=== PATIENT | male | born 1950 | race Caucasian/White ===

== ENCOUNTER 2017-06-08 05:25 | Day surgery (SDC) | payer MEDICARE, OTHER ==
[2017-06-08] VITALS (13 sets, daily range): BP systolic 95–147; BP diastolic 55–85
[~2017-06-08] VITALS: Ht 179.1 cm; Wt 121.1 kg
[~2017-06-08 05:25] MED LIST: ATORVASTATIN CA20 MG ORAL; FENOFIBRATE67 MG ORAL; GLIPIZIDE5 MG ORAL; JANUVIA25 MG ORAL; JARDIANCE PO; LISINOPRIL10 MG ORAL; METFORMIN HCL1000 M1 ORAL; MULTIVITAMINS1 EAC2 ORAL; PRESERVISION L1 EACH PO; TRAMADOL HCL50 MG ORAL; VIT C PO; VITAMIN D1000 UNI1 ORAL
[2017-06-08] MEDS ORDERED: ceFAZolin 1gm in D5W 55ml IVP ONE (06:00)
[2017-06-08] MEDS ORDERED: oxyCONTIN 20mg tab ORAL ONE (06:00)
[2017-06-08] MEDS ORDERED: celeBREX 200mg Cap **SURGERY PATIENTS ONLY ORAL ONE ×2 (06:00→06:24)
[2017-06-08] MEDS ORDERED: Ropivacaine 5mg/ml Vial 30ml INJ ONE (06:34)
--- NOTE | 2017-06-08 06:55 | Pre-Procedure Note/Attestation ---
Pre-Procedure Note/Attestation Complete Prior to Procedure Planned Procedure: right Procedure Narrative: rt shoulder scope, sad, mini adriana, rtc repair Indications for Procedure Pre-Operative Diagnosis: rt shoulder rtc tear Attestation I attest that I discussed the nature of the procedure; its benefits; risks and complications; and alternatives (and the risks and benefits of such alternatives ), prior to the procedure, with the patient (or the patient's legal mechanical service representative). I attest that, if there was a reasonable possibility of needing a blood transfusion, the patient (or the patient's legal mechanical service representative) was given the [facility] standardized written summary, pursuant to the Hayden Lester Blood Safety Act ([place] Health and Safety Code # 1645, as amended). I attest that I re-evaluated the patient just prior to the surgery and that there has been no change in the patient's H&P, except as documented below: NONE GRISEL GR Jun 08, 2017 06:55
[2017-06-08] MEDS ORDERED: Zemuron 50mg/5ml Inj IV ONE (07:00)
[2017-06-08] MEDS ORDERED: Midazolam 2mg/2ml Inj ONE ×2 (07:00)
[2017-06-08] MEDS ORDERED: NS Irrig 4000ml IRRIG ONE (07:00)
[2017-06-08] MEDS ORDERED: Neostigmine 1mg/ml 10ml Inj ONE (07:00)
[2017-06-08] MEDS ORDERED: NS Irrig 2000ml IRRIG ONE (07:00)
[2017-06-08] MEDS ORDERED: fentaNYL 100 mcg/2 mL IV ONE (07:00)
[2017-06-08] MEDS ORDERED: Glycopyrrolate 0.2mg/ml 1ml Vial ONE (07:00)
[2017-06-08] MEDS ORDERED: Propofol 200mg/20ml IV ONE (07:00)
[2017-06-08] MEDS ORDERED: NS Irrig 1000ml ONE (07:00)
[2017-06-08] MEDS ORDERED: Succinylcholine 20mg/ml 10ml vial ONE (07:00)
[2017-06-08] MEDS ORDERED: LR 1000ml ONE (07:00)
[2017-06-08] MEDS ORDERED: DiphenhydrAMINE 50mg/ml Inj IVP PRN (08:15)
[2017-06-08] MEDS ORDERED: LR 1000ml 1,000 ML IVLG SCH (08:15)
[2017-06-08] MEDS ORDERED: Ketorolac 30mg Inj IV PRN (08:15)
[2017-06-08] MEDS ORDERED: Hydromorphone 0.5mg/0.5ml inj IVP PRN (08:15)
--- NOTE | 2017-06-08 08:15 | Anethesia Preoperative Eval ---
Anesthesia Pre-op PMH/ROS General Date of Evaluation: Jun 08, 2017 Time of Evaluation: 06:50 Anesthesiologist: Clarissa ASA Score: ASA 3 Mallampati Score Class I : Soft palate, uvula, fauces, pillars visible Class II: Soft palate, uvula, fauces visible Class III: Soft palate, base of uvula visible Class IV: Only hard plate visible Mallampati Classification: Class III Surgeon: Max Diagnosis: R shoulder pain Surgical Procedure: R shoulder scope Anesthesia History: none Social History: smoking - h/o Family History: no anesthesia problems Allergies: Coded Allergies: No Known Allergies (Unverified , 06/04/17) Medications: see eMAR Past Medical History Cardiovascular: Reports: HTN, Denies: CAD, SC, valve dz, arrhythmia, other Pulmonary: Reports: [place], Denies: asthma, COPD, other Gastrointestinal/Genitourinary: Reports: GERD, Denies: CRI, ESRD, other Neurologic/Psychiatric: Reports: other - chronic pain, Denies: dementia, CVA, depression/anxiety, TIA Endocrine: Reports: DM - on pills, Denies: hypothyroidism, steroids, other HEENT: Denies: cataract (L), cataract (R), glaucoma, [place] (R), other Hematology/Immune: Denies: anemia, DVT, bleeding disorder, other Musculoskeletal/Integumentary: Reports: DJD, Denies: OA, RA, DDD, edema, other Other: obesity PMH Narrative: as above PSxH Narrative: T&A Anesthesia Pre-op Phys. Exam Physician Exam Last Vital Signs Date Time Temp Pulse Resp B/P (MAP) Pulse Ox O2 Delivery O2 Flow Rate FiO2 06/08/17 06:02 97.2 78 20 147/85 97 Room Air 97.2 Constitutional: NAD Neurologic: CN 2-12 intact Cardiovascular: RRR, no M/R/G Respiratory: CTA Gastrointestinal: other - obesity Airway Exam Mallampati Score: Class III MO: limited Neck: short ROM: limited Teeth: missing Dentures: no upper, no lower Anesthesia Pre-op A/P Labs see chart Accucheck 151 at admission Studies Pre-op Studies: EKG - NSR Risk Assessment & Plan Assessment: ASA 3 Plan: GA with ETT R brachial plexus block for p/op pain control Status Change Before Surgery: No Pre-Antibiotics Drug: Ancef 2 gr. Given Within 1 Hr of Incision: Yes Time Given: 07:55 ANA MARIA HILTON M.D. Jun 08, 2017 08:15
--- NOTE | 2017-06-08 09:22 | Brief Operative Note ---
Immediate Post Operative Note Operative Note Chief Complaint: rt shouler pain Pre-op Diagnosis: rt shoulder rtc tear Procedure: rt shoulder scope, sad, mini adriana, subscap repair, rtc repair Post-op Diagnosis: same as pre-op Findings: consistent w/pre-op dx studies Surgeon: md manuel Senior [employer] [place] Developer: effie trejo Anesthesiologist: md roopa Anesthesia: general, regional Specimen: none Complications: none Condition: stable Fluids: ns Estimated Blood Loss: minimal Drains: none Implant(s) used?: Yes - biomet JENNYFER TREJO Jun 08, 2017 09:22
--- NOTE | 2017-06-08 09:37 | Immediate Post-Op Evaluation ---
Immediate Post-Op Evalulation Immediate Post-Op Evalulation Procedure: R shoulder scope subacromion decompression RC repair Date of Evaluation: Jun 08, 2017 Time of Evaluation: 09:36 IV Fluids: 1200 Blood Products: none Estimated Blood Loss: 50 Urinary Output: none Blood Pressure Systolic: 108 Blood Pressure Diastolic: 67 Pulse Rate: 85 Respiratory Rate: 22 O2 Sat by Pulse Oximetry: 99 Temperature (Fahrenheit): 97.6 Pain Score (1-10): 2 Nausea: No Vomiting: No Complications none Patient Status: reacts, patent, extubated, none Hydration Status: adequate ANA MARIA HILTON M.D. Jun 08, 2017 09:37
--- NOTE | 2017-06-08 12:55 | 48 Hour Post Anesthesia Eval ---
Post Anesthesia Evaluation Procedure: R shoulder scope subacromion decompression RC repair Date of Evaluation: Jun 08, 2017 Time of Evaluation: 12:53 Blood Pressure Systolic: 128 0: 65 Pulse Rate: 74 Respiratory Rate: 20 Temperature (Fahrenheit): 97.6 O2 Sat by Pulse Oximetry: 98 Airway: patent Nausea: No Vomiting: No Pain Intensity: 1 Hydration Status: adequate Cardiopulmonary Status: stable Mental Status/LOC: patient returned to baseline Follow-up Care/Observations: n/a Post-Anesthesia Complications: none Follow-up care needed: ready to discharge ANA MARIA HILTON M.D. Jun 08, 2017 12:55
[2017-06-08] MEDS ORDERED: Tylenol #3 tab (300mg/30mg) ORAL PRN (14:01)
[2017-06-08] MEDS ORDERED: Norco 5mg/325mg tab ORAL PRN (14:01)
[2017-06-08] MEDS ORDERED: D5 1/2NS 1,000 ML IV SCH (14:01)
--- NOTE | 2017-06-08 16:45 | Operative Note - Dictated ---
DATE OF OPERATION: 06/08/2017 PREOPERATIVE DIAGNOSIS: Right shoulder rotator cuff tear. POSTOPERATIVE DIAGNOSES: 1. Right shoulder leading edge subscapularis tear involving more than 50% of subscapularis with mild retraction. 2. Right shoulder anterior and superior as well as posterior degenerative labral tearing. 3. Right shoulder delaminated rotator cuff tear measuring 2 cm without significant retraction. 4. Right shoulder large subacromial bone spur and impingement. 5. Bone spur underneath the distal clavicle. PROCEDURE: 1. Right shoulder arthroscopy and extensive intra-articular shaving. 2. Right shoulder debridement and repair of the superior and anterior as well as posterior labrum without anchor fixation. 3. Right shoulder anterior leading edge subscapularis repair using a single 2.9 mm JuggerKnot anchor. 4. Right shoulder subacromial bursoscopy, bursectomy, and subacromial decompression. 5. Right shoulder mini-Audra procedure (resection of inferior 30% of the distal end of the clavicle for coplaning). 6. Right shoulder arthroscopic rotator cuff repair using 2 Biomet 2.9 mm JuggerKnot anchors. SURGEON: Carlin Santana M.D. NATURE PHOTOGRAPHER: Jessica Jeter PA-C. Sand Technician was present during the actual operative portion of the case and was important and essential part of the operation. During the operation, the junior assistant manager held and operated the arthroscopic camera for visualization, assisted by manipulating the arm to help with visualization, and helped with essential parts of the repair process as necessary such as operating surgical instruments under surgeon supervision, suture management, and wound closures. ANESTHESIOLOGIST: Dr. Romo. ANESTHESIA: LMA anesthesia. ESTIMATED BLOOD LOSS: Minimal. COMPLICATIONS: None. SURGICAL INDICATION: The patient is a 67-year-old male who sustained the above injury to his shoulder. The patient was treated non-operative initially, but this did not alleviate the patients symptoms. Therefore, after discussing all non-surgical and surgical options, and discussing all foreseeable risk and benefits of surgery, the patient opted for surgical treatment as described above. PATIENT POSITIONING: The patient was brought to the operating room table and was placed on the operating room table. All pressure points were well padded. General anesthesia was induced and the patient was then placed in the lateral decubitus position. All pressure points were well padded again and an axillary roll was placed. The patient's shoulder was then prepped and draped in the usual sterile fashion. Time-out was performed and the appropriate preoperative antibiotic was given by the anesthesiologist. EXAMINATION OF SHOULDER UNDER ANESTHESIA: The shoulder was examined under anesthesia with all muscles well relaxed. The shoulder was forward flexed, abducted, and was placed through full range of external and internal rotation. The anterior, posterior, and inferior stability of the shoulder was checked. The exam revealed no evidence of adhesive capsulitis and no evidence of instability. PORTAL PLACEMENT: The posterior portal was established 2 cm inferior and 1 cm medial to the edge of the posterior acromion. A 1-cm skin incision was made using an #11 blade and using the blunt obturator, the cannula was gently placed through the capsule. The mid-glenoid portal was established just lateral to the coracoid process under direct visualization. Direction of the cannula was first established using a spinal needle, and subsequently, the cannula was placed through the capsule with a blunt obturator. DIAGNOSTIC ARTHROSCOPY: The biceps tendon was probed and pulled through the joint for visualization. There was some flattening of the biceps, however, the biceps itself was not torn. The biceps anchor was palpated with a probe and was visualized. There was some degenerative anterosuperior as well as anteroinferior labral tearing as well as superior labral tearing which was degenerative. There was no detachment from glenoid. The posterior labrum and axillary recess was visualized. This was normal and there was no evidence of loose cartilage or fragments in this area. The glenoid articular surface was visualized and it appeared normal. The articular surface of the rotator cuff was visualized and probed next. There was full-thickness rotator cuff tear measuring 2 to 2.5 cm. The humeral head articular surface was then visualized. There was no evidence of articular cartilage damage. Next the anterior labrum, middle glenohumeral ligament, subscapularis tendon, and the anteroinferior glenohumeral ligament were evaluated. There was some anterior labral tearing. The glenohumeral ligament and the anterior inferior glenohumeral ligaments were intact. The subscapularis had a partial tear involving 50% of the tendon with some mild retraction. At this point, the scope was moved to the mid-glenoid portal and the posterior structures including the posterior labrum, posterior capsule and posterior cuff were visualized. These structures were completely normal. The subscapularis recess was devoid of any loose bodies and the anterior capsule was well attached to the humeral neck. The middle and anterior inferior glenohumeral ligament was visualized. These structures were completely normal. OPERATIVE DEBRIDEMENTS AND REPAIR: Care was given to all partial-thickness tears and frayed structures in the shoulder joint. The frayed rotator cuff and labrum was debrided using a shaver initially through the anterior portal and subsequently through the posterior portal to complete the debridement. This allowed for smooth debridement of all affected structures and all loose fragments were removed. At this point, the footprint of the subscapularis was debrided and cleaned. The bone was debrided to bleeding surface. A single 2.9 mm JuggerKnot anchor was placed and a horizontal mattress suture combined with a simple suture were passed through the subscapularis. The horizontal mattress suture was then first repaired and then a second suture was used to compress the subscapularis back onto the footprint without any complication. This reconstructed the subscapularis to its the [place] footprint and provided excellent stability. At this point, care was given to the subacromial space. DIAGNOSTIC BURSOSCOPY AND SUBACROMIAL DECOMPRESSION: The subacromial bursa was entered from the posterior portal. The anterior portal was established under the CA ligament using a switching stick. Subacromial arthroscopy was initiated. There was extensive bursitis and thickened and inflamed bursa tissue present. The CA ligament appeared to be scuffed and frayed. The shaver was placed through the anterior cannula and debridement of the hypertrophic bursa tissue was accomplished. Once visualization was adequate, a lateral portal was established using a blunt trochar in the mid portion of the acromion bone in the anterior-posterior direction and approximately 2 cm lateral to the lateral edge of the acromion. Using combination of shaver and electrocautery, the CA ligament was released from the undersurface of the acromion and a complete bursectomy was accomplished. At this point, a subacromial decompression was performed using a cecilia initially taking off 5-8 mm of the anterolateral edge of the acromion from the lateral portal and viewing from the posterior portal. Then the lateral border of the undersurface of the acromion was decompressed to the same depth as the anterolateral edge. A posterior trough was then created in the acromion in line with the posterior edge of the clavicle. At this point, the scope was placed in the lateral portal and the subacromial decompression was performed from the posterior portal decompressing the undersurface of the acromion to depth of 5-8 mm. The decompression was performed anterior to the previously marked trough all the way medially to the level of the AC joint. At all times, care was given not to take off too much bone in order to avoid risk of fracture of the acromion. An excellent subacromial decompression was performed in this fashion. At this point, the bursal side of the rotator cuff was examined. All the bursa over the rotator cuff was removed and the rotator cuff was examined with a probe. The arm was placed into external rotation, neutral, and then internal rotation and there was evidence of full-thickness 2.5 cm rotator cuff tear. The scope was then placed in the posterior portal and the subacromial decompression was rechecked to assure there was no area of bone spur that would be still impinging onto the rotator cuff. EVALUATION OF DISTAL CLAVICLE AND DISTAL CLAVICLE RESECTION: Care was given to the distal end of the clavicle. Using electrocautery and [place], the distal end of the bursa and soft tissue around the distal end of the clavicle was debrided and cleaned. Care was given not to inflict excessive trauma to the ligaments of the AC joint. The distal end of the clavicle appeared to have an inferior osteophyte extending down well bellow the level of the acromion at the level of the AC joint. This appeared to be impinging onto the supraspinatus muscle belly and the musculotendinous junction of the rotator cuff. A mini-Audra procedure was performed by using a cecilia to resect the inferior 30% of the distal end of the clavicle. This decompression allowed space for the inferior structures to slide without impingement. This co-planed the inferior edge of the distal clavicle with the inferior edge of the acromion. The scope was placed in the lateral portal and the rotator cuff was visualized. The rotator cuff revealed there was a crescent-shaped mid substance tendon tear measuring 2.5 cm. The rotator cuff foot print adjacent to the articular cartilage of the humeral head was identified. This area was debrided initially using dalton and subsequently using cecilia to provide adequate bleeding bony surface to accept the rotator cuff tendon. Attention was given to repair the rotator cuff with as little tension as possible. At this point, an arthroscopic punch was used to create holes for suture anchor placement at the medial edge of the foot print through separate stab wound incisions and an arthroscopic tap was used to prepare the holes. Two Biomet 2.9 mm JuggerKnot anchors double-loaded with two #2 non-absorbable strong sutures were placed in previously prepared holes. Using standard arthroscopic suture passing instruments, the sutures were passed through the edge of rotator cuff with minimal trauma to the cuff tissue. Care was given to obtain large enough bites of the rotator cuff for the sutures to hold well. Once the sutures were passed through the cuff, the repair was secured onto the rotator cuff footprint using SMC sliding knots followed by 3 alternating-post half hitches. This allowed tension-free repair of the rotator cuff with excellent stability and watertight closure. The cuff repair security was assured by palpating the repair with a probe. CONDITION AT DISCHARGE FROM OPERATING ROOM: The skin was re-approximated and sterile dressing and sling were applied. All lap counts and instrument counts were correct. The patient tolerated the procedure well without complications and was taken to the recovery room in stable conditions. Carlin Santana M.D. DR: Adama JOB#: [id number] CC: Carlin Santana M.D.; Fax#: [phone] [facility]
== END 2017-06-08 12:05 | disposition home or self-care (01) ==
LOC: SUR 05:25
DX: M75.111 Incomplete rotator cuff tear or rupture of right shoulder, not specified as traumatic (principal); S43.401A Unspecified sprain of right shoulder joint, initial encounter; M75.41 Impingement syndrome of right shoulder; M77.9 Enthesopathy, unspecified; I10 Essential (primary) hypertension; K21.9 Gastro-esophageal reflux disease without esophagitis; E11.9 Type 2 diabetes mellitus without complications; M19.90 Unspecified osteoarthritis, unspecified site; G47.33 Obstructive sleep apnea (adult) (pediatric); E66.9 Obesity, unspecified; Z68.37 Body mass index [BMI] 37.0-37.9, adult; F41.1 Generalized anxiety disorder; F32.9 Major depressive disorder, single episode, unspecified; E78.2 Mixed hyperlipidemia; E55.9 Vitamin D deficiency, unspecified; H35.30 Unspecified macular degeneration; Z80.9 Family history of malignant neoplasm, unspecified; X58.XXXA Exposure to other specified factors, initial encounter; Y93.9 Activity, unspecified; Y92.9 Unspecified place or not applicable
CPT/HCPCS: 29823; 29824; 29826; 29827; 82962; J0330; J0690; J1885; J2250; J2704; J2710; J2795; J3010; J7120; 94003; 94150; C1713